=== PATIENT | male | born 1995 | race Caucasian/White ===

== ENCOUNTER → 2018-06-03 | Outpatient (CLI) | payer BC ==
--- NOTE | 2018-06-03 17:08 | RAD ---
CT of the head without contrast, 06/03/2018: HISTORY: Headache The ventricles are within normal limits in size. There is no shift of the midline structures. There is no evidence of acute intracranial hemorrhage or mass effect. IMPRESSION: The CT of the head without contrast reveals no significant abnormality. Electronically signed by: Uday Arevalo MD (06/03/2018 5:05 PM) [facility]
== END | disposition home or self-care (01) ==
LOC: CT 16:02
PROVIDERS: ATTEND Nurse Practitioner Family
DX: R51 Headache (principal)
CPT/HCPCS: 70450